=== PATIENT | female | born 1990 | race Caucasian/White ===

== ENCOUNTER 2016-11-25 13:51 | Emergency (ER) | payer OTHER ==
--- NOTE | ~2016-11-25 | CR72 ---
[facility] A Service of [facility] RADIOLOGY TEXT RESULTS PATIENT: CHRISTIANO SANTANA LOCATION: [facility] : [birth year] UNIT #: [id number] AGE: [address]: Brian Phan DO SEX: F ORDER DR: [id number] [facility] [address] [place], [place] [address] [id number] E MR#: [id number] Acc #: [id number] NAME: CHRISTIANO SANTANA : 1990 SEX: F STUDY DATE/TIME: 11/25/2016 14:12 UNIT: [facility] ROOM: STUDY DESCRIPTION: CR Chest Single View Portable Attending Physician: Brian Phan D.O. Ordering Physician: Brian Phan D.O. Primary Care Physician: Daisy Pittman M.D. MEDICAL IMAGING REPORT This report is preliminary unless electronic signature is present EXAM Portable chest. HISTORY Chest pain today. FINDINGS Cardiac size and pulmonary vascularity are within normal limits. Low lung volumes with mild chronic elevation of the left hemidiaphragm. No airspace infiltrates. No pleural effusions. IMPRESSION No acute findings and no active disease. Dictated by... Chaz Ferguson M.D. THIS IS AN ELECTRONICALLY VERIFIED REPORT Chaz Ferguson M.D. at 11/25/2016 5:30 PM EUN/citlali TD: 11/25/2016 16:30 JOB #: [id number] MEDICAL IMAGING REPORT Page 1 of 1 COPY
--- NOTE | ~2016-11-25 | EKG ---
PATIENT: CHRISTIANO SANTANA UNIT #: [id number] Ventricular Rate: 71 BPM Atrial Rate: 71 BPM P-R Interval: 146 ms QRS Duration: 98 ms Q-T Interval: 410 ms QTC Calculation(Bezet): 445 ms P [place]: 37 degrees Calculated R [place]: 27 degrees Calculated T [place]: 34 degrees Diagnosis Line: Normal sinus rhythm with sinus arrhythmia Diagnosis Line: Normal ECG Diagnosis Line: When compared with ECG of 24-DEC-2014 11:03, Diagnosis Line: No significant change was found Diagnosis Line: Confirmed by CHANDA CHILDERS MD ([id number]) on 11/26/2016 Diagnosis Line: 6:36:10 PM INTERPRETING MD: ALVARADO GARCIA
[~2016-11-25 13:51] MED LIST: ABILIFY; ABILIFY PO; ADVIL200 M2 PO; ANAFRANIL50 MG PO; ARMOUR THYROID60 M1 PO; BACTROBAN15 GM TOP; BENADRYL25 MG PO; BIRTH CONTROL PILL; CLARITIN; CLARITIN10 M2 PO; CLARITIN5 MG; COLACE PO; DICLOFENAC; DOC-Q-LACE100 MG PO; DULCOLAX5 MG; FLONASE 0.05% N16 G1; FLONASE16 GM; FLOVENT DI50 MCG/DIS IH; GEODAN PO; HYDROCORTISONE15 G3 TP; IBUPROFEN600 MG PO; KLONOPIN PO; LAMICTAL PO; LAMICTAL150 MG PO; LORATADINE PO; MELATONIN5 M1; MIRALAX17 GM PO; NAPROXEN PO; SPRINTEC; SPRINTEC 28 PO; THYROID PO; TYLENOL325 M1 PO; VANTIN200 MG PO; ZANTAC; ZANTAC150 MG PO; ZITHROMAX PO; ZOFRAN ODT4 MG PO; [UNRECOGNIZED DRUG - OTHER] PO
[2016-11-25 14:24] LABS: BASOPHIL% 0.6 % (0-2.5); EOSINOPHIL% 0.1 % (0.0-7.0); HEMATOCRIT 39.1 % (35.0-45.0); HEMOGLOBIN 12.8 gm/dL (12.0-16.0); LYMPHOCYTE% 30.9 % (17.0-45.0); MEAN CORPUSCULAR HEMOGLOBIN 27.5 PG (28-34); MEAN CORPUSCULAR HGB CONC 32.7 g/dL (30-36); MEAN PLATELET VOLUME 7.9 FL (6.5-11.5); MONOCYTE# 0.3 X10e3 (0-1.0); MONOCYTE% 4.7 % (3.0-12.0); NEUTROPHIL# 4.1 X10e3 (1.5-7.1); NEUTROPHIL% 63.7 % (40-75); PLATELET COUNT 236 X10e3 (140-420); RED BLOOD COUNT 4.65 X10e (3.90-5.30); RED CELL DISTRIBUTION WIDTH 13.8 % (11.0-15.5); WHITE BLOOD COUNT 6.4 X10e3 (4.0-10.5)
[2016-11-25 14:26] LABS: DIFF IND NO
[2016-11-25] MEDS ORDERED: CLARITIN10 M3 PO (14:29)
[2016-11-25] MEDS ORDERED: LAMICTAL PO (14:29)
[2016-11-25] MEDS ORDERED: ABILIFY20 MG PO (14:29)
[2016-11-25] MEDS ORDERED: PREVIDENT100 ML PO (14:30)
[2016-11-25] MEDS ORDERED: INDERAL LA PO (14:31)
[2016-11-25] MEDS ORDERED: PROZAC PO (14:31)
[2016-11-25] MEDS ORDERED: VITAMIN D32000 UNIT PO (14:32)
[2016-11-25] MEDS ORDERED: SYNTHROID PO (14:32)
[2016-11-25] MEDS ORDERED: SPRINTEC PO (14:32)
[2016-11-25 14:35] LABS: POC - CKMB <1.0 ng/mL (0.0-7.9); POC - TROPONIN <0.05 ng/mL (<=0.05)
[2016-11-25] MEDS ORDERED: BENADRYL25 M1 PO (14:37)
[2016-11-25] MEDS ORDERED: ACETAMINOPHEN325 MG PO (14:37)
[2016-11-25 14:38] LABS: PARTIAL THROMBOPLASTIN TIME 25.2 SECONDS (23.5-31.3)
[2016-11-25 14:49] LABS: ALBUMIN SERUM 3.8 g/dL (3.5-5.0); BILIRUBIN, DIRECT 0.1 mg/dL (0.0-0.2); BILIRUBIN,INDIRECT 0.4 mg/dL (0.0-0.9); BILIRUBIN,TOTAL 0.5 mg/dL (0.2-2.0); BUN/CREATININE RATIO 11.42; CALCIUM SERUM 8.9 mg/dL (8.4-10.2); CREATININE SERUM 0.7 mg/dL (0.6-1.4); GLOM FILT RATE Estimated 120.4 mL/min (>60); POTASSIUM 3.9 mmol/L (3.5-5.1); PROTEIN TOTAL SERUM 6.7 g/dL (6.0-8.3)
[2016-11-25 17:50] LABS: POC - CKMB <1.0 ng/mL (0.0-7.9); POC - TROPONIN <0.05 ng/mL (<=0.05)
== END 2016-11-25 18:35 | disposition home or self-care (01) ==
LOC: CED 13:51
PROVIDERS: Emergency Medicine
DX: R07.9 Chest pain, unspecified (principal); Z88.5 Allergy status to narcotic agent; Z79.899 Other long term (current) drug therapy
CPT/HCPCS: 36415; 71010; 80048; 80076; 82553; 84484; 85025; 85379; 85610; 85730; 93005; 96374; 99284; J1885

== ENCOUNTER 2017-01-26 19:36 | Inpatient (IN) | payer OTHER ==
[~2017-01-26] VITALS: Ht 165.1 cm; Wt 100.2 kg
--- NOTE | ~2017-01-26 | PN ---
Unit #: [id number] #: [id number] Patient: CHRISTIANO ASNTANA [id number] [facility] [address] [place] [address] [id number] I MR#: [id number] NAME: CHRISTIANO SANTANA ROOM: [facility] Age: 27 Sex: F Admission Date: 01/26/2017 : 1990 Attending Physician: Rikki Short M.D. Admitting Physician: Rikki Short M.D. Primary Care Physician: Gonsalo Curran PROGRESS NOTES DATE OF SERVICE 02/06/2017 DISCUSSION The patient was seen and chart history reviewed. Her case was discussed with unit staff. She was interacting calmly and avoided major displays of disruptive behavior. She was mildly irritable on the unit environment. She was able to redirect successfully. TREATMENT PLAN Continue current care and medication. Monitor the patient's behavioral progress in the unit setting. Work towards an appropriate step-down plan. Dictated by... Ty Christianson M.D. LANCE/olga TD: 02/08/2017 08:33 JOB #: [id number] [facility] PROGRESS NOTES Page 1 of 1 X Ty Christianson MD X PROGRESS NOTE
--- NOTE | ~2017-01-26 | PN ---
Unit #: [id number] #: [id number] Patient: CHRISTIANO SANTANA [id number] [facility] [address] [place] [address] [id number] I MR#: [id number] NAME: CHRISTIANO SANTANA ROOM: P255 Age: 27 Sex: F Admission Date: 01/26/2017 : 1990 Attending Physician: Rikki Short M.D. Admitting Physician: Rikki Short M.D. Primary Care Physician: Daisy Pittman M.D. [facility] PROGRESS NOTES DATE 01/28/2017 DISCUSSION This patient was seen today and discussed with the staff. She is in bed most of the time. She doesn't want to participate. She has a lot of somatic complaints and she complains that she is still suicidal. She seems manipulative and that is a way of life for her. She said she doesn't know what medications help and what they are for. She is very difficult to engage today. She had limited eye contact. All she could say is that she wanted to go home. She is continued on Prozac 20 mg a day, Claritin 10 mg a day, Synthroid 50 mg a day, Propranolol 10 mg a day, Abilify 20 mg a day, Lamictal 150 mg b.i.d. Dictated by... Rikki Short M.D. ARGENIS/malik TD: 02/01/2017 07:22 JOB #: [id number] [facility] PROGRESS NOTES Page 1 of 1 X Rikki Short MD X PROGRESS NOTE
--- NOTE | ~2017-01-26 | PN ---
Unit #: [id number] #: [id number] Patient: CHRISTIANO SANTANA [id number] [facility] [address] [place] [address] [id number] I MR#: [id number] NAME: CHRISTIANO SANTANA ROOM: P255 Age: 27 Sex: F Admission Date: 01/26/2017 : 1990 Attending Physician: Rikki Short M.D. Admitting Physician: Rikki Short M.D. Primary Care Physician: Gonsalo Curran PROGRESS NOTES DATE OF SERVICE: 02/05/2017 This patient was seen and discussed with staff today. She was sleeping late afternoon and barely aroused to talk. She did not have much to say that was of much value. She only reiterated what she has stated in the last several days, namely that she wants to leave. I am not sure she even cares about the fact that her foster mother out of town for 2 weeks and she is going to [facility]. Her ability to process issues and made progresses lacking. She is on the Klonopin and did not see much change yet, but will continue with trial of medication. Her mother said that this has helped substantially. Dictated by... Rikki Short M.D. ARGENIS/dalia TD: 02/07/2017 17:20 JOB #: [id number] [facility] PROGRESS NOTES Page 1 of 1 X Rikki Short MD PROGRESS NOTE
--- NOTE | ~2017-01-26 | PN ---
Unit #: [id number] #: [id number] Patient: CHRISTIANO SANTANA [id number] [facility] [address] [place] [address] [id number] I MR#: [id number] NAME: CHRISTIANO SANTANA ROOM: P255 Age: 27 Sex: F Admission Date: 01/26/2017 : 1990 Attending Physician: Rikki Short M.D. Admitting Physician: Rikki Short M.D. Primary Care Physician: Gonsalo Curran PROGRESS NOTES DATE 02/02/2017 DISCUSSION This patient was seen and discussed with staff on the unit today after some modest progress. She has regressed some, now she is still sort of hiding out in her bedroom as best she can or she falls asleep on the couches in the dayroom. It is hard to engage her and she is simply only wants to talk about going home and not change that is necessary ____ the problems that prompted her hospitalization and she listened but did not respond. Her medications remain the same today. Dictated by... Rikki Short M.D. ARGENIS/olga TD: 02/08/2017 09:58 JOB #: [id number] [facility] NOTES Page 1 of 1 X Rikki Short MD X PROGRESS NOTE
--- NOTE | ~2017-01-26 | PN ---
Unit #: [id number] #: [id number] Patient: CHRISTIANO SANTANA [id number] [facility] [address] [place] [address] [id number] I MR#: [id number] NAME: CHRISTIANO SANTANA ROOM: P255 Age: 27 Sex: F Admission Date: 01/26/2017 : 1990 Attending Physician: Rikki Short M.D. Admitting Physician: Rikki Short M.D. Primary Care Physician: Gonsalo Curran PROGRESS NOTES DATE 01/30/2017 DISCUSSION This patient was seen today and discussed with staff, and once again she was abed, tired, complaining of headache, and appeared much tired. She has had numerous complaints. I told her that not having her glasses will not lead to headaches. She had been quite angry that she has not access to room during programming hours. We have been trying to get her participate, and she is quite defiant about this. I think she did understand when I told her she has to participate before we did discharge planning. She said she definitely wants to go to (1) __, a place that is still a possibility. I talked with the foster mother who is concerned about the patient's lack of progress and the behavior in the various agencies. She is worried that it has been indulgent and not addressin the issue. There is probably some truth to this. We will continue to assess her response. We will see how she does out of her room with the increased dose of Abilify. She walked in the gallardo with me and talked today and was little more lively which might indicate that reducing Abilify helped or it might indicate that getting out of bed helped. Dictated by... Rikki Short M.D. ARGENIS/reny TD: 02/02/2017 11:02 JOB #: [id number] [facility] PROGRESS NOTES Page 1 of 1 X Rikki Short MD X PROGRESS NOTE
--- NOTE | ~2017-01-26 | PN ---
Unit #: [id number] #: [id number] Patient: CHRISTIANO SANTANA [id number] [facility] [address] [place] [address] [id number] I MR#: [id number] NAME: CHRISTIANO SANTANA ROOM: [facility] Age: 27 Sex: F Admission Date: 01/26/2017 : 1990 Attending Physician: Rikki Short M.D. Admitting Physician: Rikki Short M.D. Primary Care Physician: Gonsalo Curran PROGRESS NOTES DATE 01/27/2017 DISCUSSION This patient was admitted on 01/27. She is on Prozac 20 mg a day, Claritin 10 mg in the morning, Synthroid 50 mcg a day, propranolol 10 mg b.i.d., Abilify 20 mg in the morning, Lamictal 150 mg b.i.d. . She has a very complicated history that we are trying to understand. She has not been very cooperative. Dictated by... Gonsalo Stein/justin TD: 02/01/2017 03:23 JOB #: [id number] [facility] PROGRESS NOTES Page 1 of 1 X Rikki Short MD PROGRESS NOTE
--- NOTE | ~2017-01-26 | PN ---
Unit #: [id number] #: [id number] Patient: CHRISTIANO SANTANA [id number] [facility] [address] [place] [address] [id number] MR#: [id number] NAME: CHRISTIANO SANTANA ROOM: P255 Age: 27 Sex: F Admission Date: 01/26/2017 : 1990 Attending Physician: Rikki Short M.D. Admitting Physician: Rikki Short M.D. Primary Care Physician: Gonsalo Curran PROGRESS NOTES DATE 01/29/2017 DISCUSSION This patient was seen today and discussed with staff. She was in bed again and she had a hard time waking up and being cooperative. I talked with her about getting out of bed and participating that that is how she is going get better and be able to be discharged. She basically said she will get discharged on her own. She doesn't have to do what is being said to her and that she started complaining of headaches and a belly ache and saying she needed her glasses to address this. We will continue to address these issues with her. She is very complicated. I am not really sure what medications are helping her. I am going to reduce the Abilify to 10 mg it may be keeping her tired. I don't think it is really working for her depression or her acting out behaviors. Dictated by... Rikki Short M.D. ARGENIS/justin TD: 02/02/2017 01:32 JOB #: [id number] [facility] PROGRESS NOTES Page 1 of 1 X Rikki Short MD X PROGRESS NOTE
--- NOTE | ~2017-01-26 | PN ---
Unit #: [id number] #: [id number] Patient: CHRISTIANO SANTANA [id number] [facility] [address] [place] [address] [id number] I MR#: [id number] NAME: CHRISTIANO SANTANA ROOM: P255 Age: 27 Sex: F Admission Date: 01/26/2017 : 1990 Attending Physician: Rikki Short M.D. Admitting Physician: Rikki Short M.D. Primary Care Physician: Gonsalo Curran PROGRESS NOTES DATE 02/01/2017 DISCUSSION This patient was seen today and discussed with the staff on the unit. The staff couldn't get her out of the room again this morning, it was difficult, she is defiant and probably stubborn, and she has become a bit more withdrawn, keeping to herself, and not participating. This was worrisome given her suicidality at the time of admission. She really won't answer any questions. She just talks about wanting to be out of the hospital and that she will do well, she looks glum, sad, and angry and we will continue with the present medications although these are being reevaluated. I am trying to get in touch with biological mother to talk about the case some. That has been difficult because I think she is a business support associate. Dictated by... Rikki Short M.D. ARGENIS/malik TD: 02/04/2017 11:51 JOB #: [id number] [facility] PROGRESS NOTES Page 1 of 1 X Rikki Short MD X PROGRESS NOTE
--- NOTE | ~2017-01-26 | PA ---
Unit #: [id number] #: [id number] Patient: CHRISTIANO SANTANA [id number] [facility] [address] [place] [address] [id number] I MR#: [id number] NAME: CHRISTIANO SANTANA ROOM: P255 Age: 27 Sex: F Admission Date: 01/26/2017 : 1990 Date of Assessment: Attending Physician: Rikki Short M.D. Admitting Physician: Rikki Short M.D. Primary Care Physician: Daisy Pittman M.D. PSYCHIATRIC ASSESSMENT INFORMANTS The patient and Estelle Prakash, and Nimco Galicia. CHIEF COMPLAINT Foster mother reports that she said she was going to kill herself. HISTORY OF PRESENT ILLNESS This is a 27-year-old woman who had appointments with my office a couple of times, but never showed. She presented to the hospital because the foster mother reported that she was saying she was going to kill herself. She has been back in the home where she lived previously and they were sitting at the table and it was reported that Christiano had been picked up from the day program 2 days in a row for being physically aggressive. She was on the bus and tearing things per the school bus mechanic. She went home to the foster home that night and said she was going to kill herself with a the gun and she started hitting herself on the table and saying "ouch." She said she wasn't going to take her medications. The foster mother said she has a lot of potential, but she needs to work on these issues, how she handles her sadness and disappointment, particularly about her mother. She had been scratching herself. The patient receives disability. She is not currently enrolled in school. She completed the 9th grade. She lives with the family health provider and was removed from her mother because mother requested assistance from the State. Mother still makes decisions for the patient. She has been in the current placement since 01/18/2017. She had been to previous homes also. She has a diagnoses of PCOS, hypertension, hypothyroidism, and autism. She has a strained relationship with her mother. She identifies her family health client support manager, Nimco, is supportive as well as the staff in the day treatment program at the [facility]. Apparently, her energy has been very low for several days, although she has been aggressive and threatening suicide. She has a past history of attempting suicide by cutting herself before. She also has a history of self-harm by hitting and scratching herself. Apparently, she has been quite aggressive and out of control. When the patient was interviewed, she corroborated some of the above, although she was sleepy and really did not want to talk, she said she is "not sure why" wants to kill herself. She said she has a history of cutting on herself. She said she is depressed. She said she sleeps well. Unit #: [id number] #: [id number] Patient: CHRISTIANO SANTANA She is agitated, angry and helpless. She has been in a number of homes. She is back at home where she was previously where she left because of her oos-zy-hcfhwls behaviors. She denies any legal history. She denies any history of abuse. PAST PSYCHIATRIC HISTORY The patient has been hospitalized at [facility] previously. She is currently on Abilify 20 mg at bedtime, Lamictal 150 mg b.i.d., Sprintec, Prozac 20 mg a day, Claritin 10 mg in the morning, Synthroid 50 mcg a day, propranolol 10 mg b.i.d. PAST MEDICAL HISTORY The patient has had a cholecystectomy. ALLERGIES Codeine. She said her LMP was last week. She has no further history of serious illness, injuries, or hospitalizations. FAMILY HISTORY Her mother is in [place] and she sees her not extremely frequently. She said her father is in [place]. She does not see him much. She talks to him once in a while. She has a sister. SOCIAL HISTORY The patient is not employed. She attends a day treatment program. She denies chemical dependency issues. Please see psychosocial for more details. MENTAL STATUS EXAMINATION This patient was seen in her room. She is lying in her bed with the covers over her head. She did wake up some and talk, but it took quite some time to come around and speak. She looks disheveled. She is overweight. She speaks haltingly, did not really seem to want to participate in the discussion. One gets the sense that she is tired, but also being stubborn and defiant about participating. She said she continues to be suicidal. She is oriented x3. Memory function is intact. IQ is estimated to be in the average to low average range. The patient shows no gross disorganization, including looseness of associations. She was suicidal and admits to aggressive and jdu-zq-cnamcea behaviors. She tends to project blame and seems to be manipulative. She has a history of being markedly manipulative. Judgment and insight are impaired. DIAGNOSES AXIS I: Asperger's disorder; major depression, moderate, recurrent, rule out bipolar disorder; hypothyroidism; polycystic ovarian syndrome; history of hypertension possibly. AXIS II: AXIS III: AXIS IV: AXIS V: PLAN 1. The patient will be admitted to the inpatient unit. Unit #: [id number] #: [id number] Patient: CHRISTIANO SANTANA 2. The patient will be watched closely for self-injurious behavior and suicidality. 3. Collaboration with those involved in her care will be important. 4. The patient will continue on present medications, but the changes will be made as appropriate. Apparently, she was not consistently taking medication. 5. The patient will be stabilized and possibly will go back to the same foster home. ESTIMATED LENGTH OF STAY 2 to 3 weeks. Dictated by... Rikki Short M.D. ARGENIS/dalia TD: 01/31/2017 06:37 JOB #: [id number] PSYCHIATRIC ASSESSMENT Page 1 of 1 X Rikki Short MD X PSYCHIATRIC ASSESSMENT
--- NOTE | ~2017-01-26 | PN ---
Unit #: [id number] #: [id number] Patient: CHRISTIANO SANTANA [id number] [facility] [address] [place] [address] [id number] MR#: [id number] NAME: CHRISTIANO SANTANA ROOM: P255 Age: 27 Sex: F Admission Date: 01/26/2017 : 1990 Attending Physician: Rikki Short M.D. Admitting Physician: Rikki Short M.D. Primary Care Physician: Daisy Pittman M.D. [facility] PROGRESS NOTES DATE 02/03/2017 DISCUSSION This patient was seen today and discussed with staff. I also had a long talk with mom. She said she has a long history of aggressive behavior. It has been going on for years. She also said she had a seizure history. She had petit mal and grand mal lasted 40 minutes and has not had a seizure since then. Mom said that the aggression is a problem and that she has also learned to be manipulative. She said she would get very out of control and she is aware of that. She is also aware that she is not handling the situation very well, at lease she says this. Mom said that she was on Klonopin before and that helped but it was discontinued by [facility] and she did not sure why. She said she was only taking a low dose, probably 0.25 daily. I told them I would consider adding that. The patient continues to refuse to get out of bed this morning and was agitated. She continues on Prozac, Synthroid, Inderal, Lamictal and Abilify. Mom said that she thinks the Lamictal helped with her mood but the Abilify does not. Mom said that she was on Risperdal before but she developed tics. Her foster mother is going on vacation for 2 weeks so that she is to be discharged to go to [facility]. Apparently, she knows the person in the Respite home. Will continue with the present treatment plan. Dictated by... Rikki Short M.D. ARGENIS/olga TD: 02/08/2017 15:21 JOB #: [id number] Unit #: [id number] #: [id number] Patient: MAXCHRISTIANOLJ SWAN PROGRESS NOTES Page 1 of 1 X Rikki Short MD PROGRESS NOTE
--- NOTE | ~2017-01-26 | HP ---
Unit #: [id number] #: [id number] Patient: CHRISTIANO SANTANA [id number] [place] [address] [id number] I MR#: [id number] NAME: CHRISTIANO SANTANA ROOM: [facility] Age: 27 Sex: F Admission Date: 01/26/2017 : 1990 Attending Physician: Rikki Short M.D. Admitting Physician: Rikki Short M.D. Primary Care Physician: Daisy Pittman M.D. HISTORY AND PHYSICAL HISTORY OF PRESENT ILLNESS Christiano is a 27 year old admitted to [address] [place] [address] with depression and verbalizing wanting to hurt herself. PAST MEDICAL HISTORY 1. Autism. 2. Hypothyroidism. 3. High blood pressure. 4. PCOS. PAST SURGICAL HISTORY Cholecystectomy. ALLERGIES Codeine. SOCIAL HISTORY She denies cigarettes, alcohol and illicit drug use. FAMILY HISTORY Medically noncontributory. REVIEW OF SYSTEMS CONSTITUTIONAL: No fever or chills. HEENT: Denies any sore throat, ear pain or runny nose. CARDIOVASCULAR: Denies chest pain, irregular heart rhythm or palpitations. CHEST: Denies shortness of breath or cough. No hemoptysis. GASTROINTESTINAL: Denies nausea, vomiting, diarrhea or chronic constipation. ENDOCRINE: Denies history of increased thirst or urination. No recent significant weight loss or gain. GENITOURINARY: Denies dysuria, frequency, or hematuria. SKIN: Denies any rashes. HEMATOLOGIC: Denies history of increased bleeding or bruising. MUSCULOSKELETAL: Denies any hot, swollen joints. No generalized muscle pain. NEUROLOGIC: Denies problems with vision or speech. No frequent, severe headaches. No numbness, tingling or weakness in any extremities. Denies loss of bladder or bowel control. CURRENT MEDICATIONS 1. Propranolol 10 mg q.a.m. Unit #: [id number] #: [id number] Patient: CHRISTIANO SANTANA 2. Synthroid 0.05 mg q day 3. Claritin 10 mg q day 4. Prozac 20 mg q day 5. Abilify 30 mg q.h.s. 6. Lamictal 150 mg b.i.d. 7. Milk of Magnesia p.r.n. 8. Maalox p.r.n. 9. Tylenol p.r.n. 10. Previfem control one tablet q day PHYSICAL EXAMINATION GENERAL: Alert, obese, in no apparent distress. VITAL SIGNS: Blood pressure 110/66, heart rate 80, respirations 16, temperature 98.6. WEIGHT: 221 pounds. HEIGHT: 5 foot 5 inches. SKIN: Warm and dry without rash or lesion. HEENT: Normocephalic. TMs not viewed. Oral and nasal passages clear. Conjunctivae clear. Pupils equal, round and reactive to light and accommodation. Extraocular movements intact. NECK: Supple without lymphadenopathy or thyromegaly. HEART: Regular rate and rhythm without murmur. LUNGS: Clear. ABDOMEN: Soft, nontender. : Not done. EXTREMITIES: No evidence of cyanosis, clubbing or edema. Moves all extremities without focal deficit. NEUROLOGICAL: Grossly within normal limits. Cranial Nerves: II: Visual haque are intact. III, IV AND : Extraocular movements are intact. Pupils are equal, round and reactive to light. V: Facial sensation is grossly normal. VII: Facial movements and expression are normal. VIII: Auditory acuity grossly intact. IX, X: Uvula is midline. Phonation is normal. XI: Patient shrugs shoulders and turns head normally. XII: Tongue protrudes in the midline. Sensory and Motor Function: Sensory and motor sensation is grossly normal. Motor: moves all extremities well. Coordination: Gait is normal. Deep Tendon Reflexes: Intact. IMPRESSION Psychiatric admission. RECOMMENDATIONS PSYCHIATRIC: Per psychiatrist. MEDICAL: I see no contraindications to participating in facility's activities. MEDICAL PROGNOSIS Good. MEDICAL CONDITION Stable. Unit #: [id number] #: [id number] Patient: CHRISTIANO SANTANA Dictated by... Rosie Gill P.A.-C. for Gonsalo Ley/justin TD: 01/27/2017 20:39 JOB #: [id number] HISTORY AND PHYSICAL Page 1 of 1 X Rosie Gill HISTORY AND PHYSICAL
--- NOTE | ~2017-01-26 | PN ---
Unit #: [id number] #: [id number] Patient: CHRISTIANO SANTANA [id number] [facility] [address] [place] [address] [id number] I MR#: [id number] NAME: CHRISTIANO SANTANA ROOM: P255 Age: 27 Sex: F Admission Date: 01/26/2017 : 1990 Attending Physician: Rikki Short M.D. Admitting Physician: Rikki Short M.D. Primary Care Physician: Gonsalo Curran NOTES DATE 01/31/2017 DISCUSSION This patient was seen and discussed with the staff today. She has told me that her clinical social worker and her foster mother was ready for her come home that day and they had talked about it, and I knew for a fact that that wasn't the case because I had spoken with the foster mother and she admitted later that she lied and just wanted to get out of the hospital, and she is participating some in the programming but reluctantly she still wants to stay in bed and be avoidant. She really has a difficult time talking about her threats to kill herself and her aggressive behavior with others. These issues need to be addressed before she is safe to leave. Dictated by... Rikki Short M.D. ARGENIS/malik TD: 02/03/2017 09:11 JOB #: [id number] [facility] NOTES Page 1 of 1 X Rikki Short MD X PROGRESS NOTE
--- NOTE | ~2017-01-26 | PN ---
Unit #: [id number] #: [id number] Patient: CHRISTIANO SANTANA [id number] [facility] [address] [place] [address] [id number] I MR#: [id number] NAME: CHRISTIANO SANTANA ROOM: [facility] Age: 27 Sex: F Admission Date: 01/26/2017 : 1990 Attending Physician: Rikki Short M.D. Admitting Physician: Rikki Short M.D. Primary Care Physician: Gonsalo Curran PROGRESS NOTES DATE 02/07/2017 DISCUSSION The patient was seen and chart history reviewed. Her case was discussed with unit staff. She was able to interact safely and avoided major displays of disruption or agitation. TREATMENT PLAN Continue to monitor the patient's behavioral progress in the unit setting. Work towards an appropriate step-down plan. Dictated by... Gonsalo Jain/bzmaia TD: 02/09/2017 07:36 JOB #: [id number] [facility] PROGRESS NOTES Page 1 of 1 X Ty Christianson MD X PROGRESS NOTE
--- NOTE | ~2017-01-26 | PN ---
Unit #: [id number] #: [id number] Patient: CHRISTIANO SANTANA [id number] [facility] [address] [place] [address] [id number] I MR#: [id number] NAME: CHRISTIANO SANTANA ROOM: P255 Age: 27 Sex: F Admission Date: 01/26/2017 : 1990 Attending Physician: Rikki Short M.D. Admitting Physician: Rikki Short M.D. Primary Care Physician: Gonsalo Curran PROGRESS NOTES DATE 02/04/2017 DISCUSSION This patient was seen today and discussed with the staff. Apparently mom called and said we should push her buttons to make her go wash. She was instructed that we don't do this, and that we are aware of her difficulties. Mom is quite concerned about her behavior away from the hospital and the fact that she shut down and not really working on it presently. We told mom that we are trying. She was started on Klonopin 0.25 mg in the morning along with other medications we will see if this helps. She really is stuck at this point. Dictated by... Rikki Short M.D. ARGENIS/malik TD: 02/09/2017 08:28 JOB #: [id number] [facility] PROGRESS NOTES Page 1 of 1 X Rikki Short MD X PROGRESS NOTE
--- NOTE | ~2017-01-26 | PN ---
Unit #: [id number] #: [id number] Patient: CHRISTIANO SANTANA [id number] [facility] [address] [place] [address] [id number] I MR#: [id number] NAME: CHRISTIANO SANTANA ROOM: P255 Age: 27 Sex: F Admission Date: 01/26/2017 : 1990 Attending Physician: Rikki Short M.D. Admitting Physician: Rikki Short M.D. Primary Care Physician: Gonsalo Curran PROGRESS NOTES DATE 02/08/2017 DISCUSSION This patient was up at 8:00 a.m. She had to be coaxed out of bed. She is not really participating well. I think she could do better. I think she is more capable than she lets on, when I talk about her being manipulative or indirect communication she just smiles, we will do what we can, she is going to go to [facility] when she is discharged. She is on Prozac 20 mg in the morning, Claritin 10 mg in the morning, Synthroid 50 mcg in the morning, Inderal 10 mg in the morning, Lamictal 150 mg b.i.d., Abilify 10 mg at bedtime and Klonopin 0.25 mg in the morning, so far hasn't showed much promise. Dictated by... Rikki Short M.D. ARGENIS/malik TD: 02/15/2017 12:16 JOB #: [id number] [facility] PROGRESS NOTES Page 1 of 1 X Rikki Short MD PROGRESS NOTE
[~2017-01-26 19:36] MED LIST changes: +ABILIFY20 MG PO; +ACETAMINOPHEN325 MG PO; +BENADRYL25 M1 PO; +CLARITIN10 M3 PO; +INDERAL LA PO; +PREVIDENT100 ML PO; +PROZAC PO; +SPRINTEC PO; +SYNTHROID PO; +VITAMIN D32000 UNIT PO
[2017-01-27 09:30] LABS: BASOPHIL% 0.5 % (0-2.5); EOSINOPHIL% 0.1 % (0.0-7.0); HEMATOCRIT 37.5 % (35.0-45.0); HEMOGLOBIN 12.3 gm/dL (12.0-16.0); LYMPHOCYTE% 36.5 % (17.0-45.0); MEAN CELL VOLUME 85.6 FL (83-96); MEAN CORPUSCULAR HGB CONC 32.7 g/dL (30-36); MEAN PLATELET VOLUME 7.7 FL (6.5-11.5); MONOCYTE# 0.4 X10e3 (0-1.0); MONOCYTE% 7.3 % (3.0-12.0); NEUTROPHIL# 3.1 X10e3 (1.5-7.1); NEUTROPHIL% 55.6 % (40-75); PLATELET COUNT 293 X10e3 (140-420); RED BLOOD COUNT 4.39 X10e (3.90-5.30); RED CELL DISTRIBUTION WIDTH 14.2 % (11.0-15.5); WHITE BLOOD COUNT 5.6 X10e3 (4.0-10.5)
[2017-01-27 09:36] LABS: DIFF IND NO
[2017-01-27 10:01] LABS: THYROID STIMULATING HORMONE 8.15 uIU/ml (0.34-5.60)
[2017-01-27 10:08] LABS: FREE THYROXIN (T4) 0.91 ng/dL (0.58-1.64)
[2017-01-27 10:09] LABS: ALBUMIN SERUM 3.7 g/dL (3.5-5.0); BILIRUBIN,TOTAL 0.1 mg/dL (0.2-2.0); CALCIUM SERUM 9.2 mg/dL (8.4-10.2); CREATININE SERUM 0.5 mg/dL (0.6-1.4); GLOM FILT RATE Estimated 133.6 mL/min (>60); POTASSIUM 4.4 mmol/L (3.5-5.1); PROTEIN TOTAL SERUM 6.4 g/dL (6.0-8.3)
[2017-01-29 09:40] LABS: URINE APPEARANCE CLEAR; URINE BILIRUBIN NEG (NEG); URINE BLOOD NEG (NEG); URINE COLOR YELLOW; URINE GLUCOSE NEG (NEG); URINE KETONE NEG (NEG); URINE LEUKOCYTE ESTERASE NEG (NEG); URINE NITRATE NEG (NEG); URINE PH 6.5 (5-8); URINE PROTEIN NEG (NEG); URINE SPECIFIC GRAVITY 1.005 (1.003-1.035); URINE UROBILINOGEN 0.2 MG/DL (NEG)
[2017-01-29 11:07] LABS: AMPHETAMINE NEG (NEG); BARBITURATES NEG (NEG); BENZODIAZEPINES NEG (NEG); COCAINE NEG (NEG); MARIJUANA NEG (NEG); OPIATES NEG (NEG); TRICYCLIC ANTIDEPRESSANTS NEG (NEG); U METHADONE NEG (NEG)
== END 2017-02-08 18:30 | disposition home or self-care (01) | DRG 885 ==
LOC: P2L 22:21
PROVIDERS: Psychiatry & Neurology Child & Adolescent Psychiatry
DX: F84.5 Asperger's syndrome (principal); F33.1 Major depressive disorder, recurrent, moderate; R45.851 Suicidal ideations; E03.9 Hypothyroidism, unspecified; E28.2 Polycystic ovarian syndrome; I10 Essential (primary) hypertension; Z88.5 Allergy status to narcotic agent; Z90.49 Acquired absence of other specified parts of digestive tract
CPT/HCPCS: 80053; 80307; 81003; 84439; 84443; 85025

== ENCOUNTER 2017-02-17 17:58 | Inpatient (IN) | payer OTHER ==
[~2017-02-17] VITALS: Ht 165.1 cm; Wt 100.2 kg
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
--- NOTE | ~2017-02-17 | PN ---
Unit #: [id number] #: [id number] Patient: CHRISTIANO SANTANA [id number] [facility] [address] [place] [address] [id number] I MR#: [id number] NAME: CHRISTIANO SANTANA ROOM: [facility] Age: 27 Sex: F Admission Date: 02/17/2017 : 1990 Attending Physician: Rikki Short M.D. Admitting Physician: Rikki Short M.D. Primary Care Physician: Kelly Doctor Not In System [facility] PROGRESS NOTES DATE 03/03/2017 DISCUSSION This patient was discharged to [facility] today. She is going to [facility] and then [facility] home and she says she is fine with that. We talked again about how to comport her behavior now to ask for help. She said she will do this. I think there is a strong possibility that she will struggle once again. She is on Inderal 10 mg in the morning, Synthroid 50 mcg a day, Claritin 10 mg in the morning, (1)* 150 mg b.i.d., Prozac 10 mg in the morning and Abilify 5 mg at bedtime. Her medications were reduced and her family things she seems more alive and less depressed and less tried. The medications may be considered on an outpatient basis. *Report faxed to Dr. Short's office on 03/10/17 for medication verification. cd Dictated by... Rikki Short M.D. ARGENIS/justin TD: 03/10/2017 04:17 JOB #: [id number] [facility] PROGRESS NOTES Page 1 of 1 X Rikki Short MD PROGRESS NOTE
--- NOTE | ~2017-02-17 | PN ---
Unit #: [id number] #: [id number] Patient: CHRISTIANO SANTANA [id number] [facility] [address] [place] [address] [id number] I MR#: [id number] NAME: CHRISTIANO SANTANA ROOM: P264 Age: 27 Sex: F Admission Date: 02/17/2017 : 1990 Attending Physician: Rikki Short M.D. Admitting Physician: Rikki Short M.D. Primary Care Physician: Kelly Doctor Not In System [facility] PROGRESS NOTES DATE 02/27/2017 DISCUSSION This patient was seen today and discussed with staff. She was sleeping in the day room and not in her room anyway. She was (1) __ a couple of chairs, and I found out that she said "I'm not sleeping." This is after I woke her up. She said she is participating more and is more upbeat and positive. She said she thinks she can make it at home and does not have to go to residential care. We will continue with the same medications and work with the company who has her case to see if we can help find a placement. Dictated by... Rikki Short M.D. ARGENIS/reny TD: 03/04/2017 07:14 JOB #: [id number] [facility] PROGRESS NOTES Page 1 of 1 X Rikki Short MD PROGRESS NOTE
--- NOTE | ~2017-02-17 | PN ---
Unit #: [id number] #: [id number] Patient: CHRISTIANO SANTANA [id number] [facility] [address] [place] [address] [id number] I MR#: [id number] NAME: CHRISTIANO SANTANA ROOM: [facility] Age: 27 Sex: F Admission Date: 02/17/2017 : 1990 Attending Physician: Rikki Short M.D. Admitting Physician: Rikki Short M.D. Primary Care Physician: Generic Doctor Not In System [facility] PROGRESS NOTES DATE 02/20/2017 DISCUSSION The patient was seen and chart history reviewed. Her case was discussed with unit staff. She was able to participate in group settings and avoided an major displays of disruptive behavior in the [address] [place] [address] [place] [address] environment. TREATMENT PLAN I will continue current care and medication. Work towards an appropriate stepdown plan. Dictated by... Ty Christianson M.D. TDP/ts TD: 02/23/2017 09:18 JOB #: [id number] [facility] PROGRESS NOTES Page 1 of 1 X Ty Christianson MD X PROGRESS NOTE
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
--- NOTE | ~2017-02-17 | HP ---
Unit #: [id number] #: [id number] Patient: CHRISTIANO SANTANA [id number] [facility] [address] [place] [address] [id number] I MR#: [id number] NAME: CHRISTIANO SANTANA ROOM: P205 Age: 27 Sex: F Admission Date: 02/17/2017 : 1990 Attending Physician: Rikki Short M.D. Admitting Physician: Rikki Short M.D. Primary Care Physician: Generic Doctor Not In System HISTORY AND PHYSICAL Christiano is a 27 year old admitted to [address] [place] [address] with depression and verbalizing wanting to hurt herself. She was just discharged from this facility after treatment for the same. Patient was seen and H and P dated 01/27/17 was reviewed. This is current. No changes. Please see H and P dated 01/27/17. Dictated by... Rosie Gill P.A.-C. for Gonsalo Ley/olga TD: 02/18/2017 16:45 JOB #: [id number] HISTORY AND PHYSICAL Page 1 of 1 X Rosie Gill HISTORY AND PHYSICAL
--- NOTE | ~2017-02-17 | PN ---
Unit #: [id number] #: [id number] Patient: CHRISTIANO SANTANA [id number] [facility] [address] [place] [address] [id number] I MR#: [id number] NAME: CHRISTIANO SANTANA ROOM: 64 Age: 27 Sex: F Admission Date: 02/17/2017 : 1990 Attending Physician: Rikki Short M.D. Admitting Physician: Rikki Short M.D. Primary Care Physician: Generic Doctor Not In System [facility] PROGRESS NOTES DATE 03/02/2017 DISCUSSION This patient was seen today and discussed with the staff, she said she was doing reasonably well today, and participating. She was in bed but awake and willing to talk with me about issues. She said that she is leaving to go with a woman to possible Res[facility] providers, we, once again, talked about what she needs to do to be successful. Specifically, we talked about avoiding the conflict when she gets demanding. She said she understands it, and I think that is true to some extent. She said mother has been in touch with her and she is looking forward to discharge. Dictated by... Gonsalo Stein/malik TD: 03/09/2017 11:27 JOB #: [id number] [facility] PROGRESS NOTES Page 1 of 1 X Rikki Short MD PROGRESS NOTE
--- NOTE | ~2017-02-17 | PN ---
Unit #: [id number] #: [id number] Patient: CHRISTIANO SANTANA [id number] [facility] [address] [place] [address] [id number] I MR#: [id number] NAME: CHRISTIANO SANTANA ROOM: [facility] Age: 27 Sex: F Admission Date: 02/17/2017 : 1990 Attending Physician: Rikki Short M.D. Admitting Physician: Rikki Short M.D. Primary Care Physician: Generic Doctor Not In System [facility] PROGRESS NOTES DATE OF SERVICE: 02/21/2017 DISCUSSION The patient was seen and chart history reviewed. Her case was discussed with unit staff. She was interacting appropriately and stayed in groups on 2 Kristina. She was able to avoid any significant displays of disruptive behavior. TREATMENT PLAN Continue current care and medication. Monitor the patient's behavioral progress in the unit setting. Work towards an appropriate step-down plan. Dictated by... Ty Christianson M.D. TDP/modl TD: 02/24/2017 04:36 JOB #: [id number] [facility] PROGRESS NOTES Page 1 of 1 X Ty Christianson MD X PROGRESS NOTE
--- NOTE | ~2017-02-17 | PN ---
Unit #: [id number] #: [id number] Patient: CHRISTIANO SANTANA [id number] [facility] [address] [place] [address] [id number] I MR#: [id number] NAME: CHRISTIANO SANTANA ROOM: P264 Age: 27 Sex: F Admission Date: 02/17/2017 : 1990 Attending Physician: Rikki Short M.D. Admitting Physician: Rikki Short M.D. Primary Care Physician: Generic Doctor Not In System [facility] PROGRESS NOTES DATE 02/19/2017 DISCUSSION This patient was in bed today and would not talk. She has spent a fair amount of time in bed. We decided to keep her out of her room between 8 and 6 and see if she can participate more. This was done on previous admission and it helped some. Placement for her is going to be difficult with the previous provider having given notice. I am not sure what the agency is going to do. She needs continued care and assessment regarding her propensity to act out violently and her suicidality. Both these issues are still very present. Dictated by... Rikki Short M.D. ARGENIS/olga TD: 02/23/2017 17:22 JOB #: [id number] [facility] PROGRESS NOTES Page 1 of 1 X Rikki Short MD PROGRESS NOTE
--- NOTE | ~2017-02-17 | PN ---
Unit #: [id number] #: [id number] Patient: CHRISTIANO SANTANA [id number] [facility] [address] [place] [address] [id number] I MR#: [id number] NAME: CHRISTIANO SANTANA ROOM: [facility] Age: 27 Sex: F Admission Date: 02/17/2017 : 1990 Attending Physician: Rikki Short M.D. Admitting Physician: Rikki Short M.D. Primary Care Physician: Kelly Doctor Not In System [facility] PROGRESS NOTES DATE 02/25/2017 DISCUSSION This patient was in bed sleeping today at 7:00 p.m. I woke her up and she said she was participating better but got tired. She does go back to this posture when things aren't going well. She is on Inderal 10 mg in the morning, Synthroid 50 mcg daily, Lamictal 150 mg b.i.d., Prozac 10 mg in the morning, Abilify 5 mg a day, she seems to be doing fine with the reduced doses of medications. Dictated by... Gonsalo Stein/malik TD: 03/03/2017 09:52 JOB #: [id number] [facility] NOTES Page 1 of 1 X Rikki Short MD PROGRESS NOTE
--- NOTE | ~2017-02-17 | PN ---
Unit #: [id number] #: [id number] Patient: CHRISTIANO SANTANA [id number] [facility] [address] [place] [address] [id number] I MR#: [id number] NAME: CHRISTIANO SANTANA ROOM: 64 Age: 27 Sex: F Admission Date: 02/17/2017 : 1990 Attending Physician: Rikki Short M.D. Admitting Physician: Rikki Short M.D. Primary Care Physician: Kelly Doctor Not In System [facility] PROGRESS NOTES DATE 02/22/2017 DISCUSSION This patient was seen today and discussed with the staff on the unit, surprisingly she was cooperative with getting out of bed today and she was engaging. When I saw her contrary to previous meetings she initiated some discussion and similar affect. She didn't immediately talk about getting out of the hospital either. She seems more comfortable and perhaps willing to participate in treatment. I did lower her Abilify to 5 mg a day, I am not sure the medication is helping nor is her mother and may be making her sleepy. She is also on Inderal 10 mg in the morning, Synthroid 50 mcg a day, also lowered the Prozac to 10 mg a day, I am not sure medication is helping. She is on Lamictal 150 mg b.i.d. We will continue with the present treatment plan. Dictated by... Rikki Short M.D. ARGENIS/malik TD: 02/24/2017 08:34 JOB #: [id number] [facility] PROGRESS NOTES Page 1 of 1 X Rikki Short MD PROGRESS NOTE
--- NOTE | ~2017-02-17 | PN ---
Unit #: [id number] #: [id number] Patient: CHRISTIANO SANTANA [id number] [facility] [address] [place] [address] [id number] I MR#: [id number] NAME: CHRISTIANO SANTANA ROOM: 64 Age: 27 Sex: F Admission Date: 02/17/2017 : 1990 Attending Physician: Rikki Short M.D. Admitting Physician: Rikki Short M.D. Primary Care Physician: Generic Doctor Not In System [facility] PROGRESS NOTES DATE 03/01/2017 DISCUSSION This patient was seen today and discussed with staff on the unit. She is regressed a little bit. She is tending to want to find the bed and stay there. Although she will not wake up I am going to talk to her (1) __ today. She talked about wanting to (2) __, and she is able to recite what she needs to address and how she needs to behave. At least she is doing that much. I think her chance of success in the foster home is guarded, and this needs to be kept in mind. Her medications remain the same for now. Dictated by... Rikki Short M.D. ARGENIS/reny TD: 03/05/2017 14:40 JOB #: [id number] [facility] PROGRESS NOTES Page 1 of 1 X Rikki Short MD PROGRESS NOTE
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
--- NOTE | ~2017-02-17 | PN ---
Unit #: [id number] #: [id number] Patient: CHRISTIANO SANTANA [id number] [place] [address] [id number] I MR#: [id number] NAME: CHRISTIANO SANTANA ROOM: 64 Age: 27 Sex: F Admission Date: 02/17/2017 : 1990 Attending Physician: Rikki Short M.D. Admitting Physician: Rikki Short M.D. Primary Care Physician: Kelly Doctor Not In System [facility] NOTES DATE 02/18/2017 DISCUSSION This patient was admitted on 02/17/2017 because of severely aggressive behaviors, threatening to kill others and herself. She was recently in [facility] and did not make it (1) __ home. She is on propranolol 10 mg in the morning, Synthroid 50 mcg a day, Claritin 10 mg in the morning, Prozac 20 mg in the morning, Abilify 10 mg a day, and Lamictal 150 mg b.i.d. She reports no side effects from medication. She (2) __ talk with me today. Dictated by... Gonsalo Stein/reny TD: 02/22/2017 16:32 JOB #: [id number] [facility] NOTES Page 1 of 1 X Rikki Short MD PROGRESS NOTE
[2017-02-21 12:07] LABS: AMPHETAMINE NEG (NEG); BARBITURATES NEG (NEG); BENZODIAZEPINES NEG (NEG); COCAINE NEG (NEG); MARIJUANA NEG (NEG); OPIATES NEG (NEG); TRICYCLIC ANTIDEPRESSANTS NEG (NEG); U METHADONE NEG (NEG)
== END 2017-03-03 16:25 | disposition home or self-care (01) | DRG 885 ==
LOC: P2L 22:29 → P2S 22:29 → P2L 02-18 20:10
PROVIDERS: Psychiatry & Neurology Child & Adolescent Psychiatry
DX: F84.5 Asperger's syndrome (principal); F33.1 Major depressive disorder, recurrent, moderate; Z88.5 Allergy status to narcotic agent; E03.9 Hypothyroidism, unspecified; E28.2 Polycystic ovarian syndrome
CPT/HCPCS: 80307; 84703